=== PATIENT | male | born 1975 | race Caucasian/White ===

== ENCOUNTER 2017-04-08 14:59 | Emergency (ER) | payer OTHER ==
--- NOTE | 2017-04-08 18:15 | ED ORDER SUMMARY ---
..... Patient: MARYANNE ARORA W OrderSheet [facility] VisitID: [id number] [address] [place] [address] 41y, M Registration Date/Time: 04/08/2017 ORDER SHEET Weight: 68.0 kg (stated) Allergies: Codeine GENERAL ORDERS: CBC w Diff Urgent (15:04/08/2017 HBivens A.R.N.P.) (Ack 15:29 TBergley) (15:33 KKnebel R.N.) CMP Urgent (15:04/08/2017 HBivens A.R.N.P.) (Ack 15:29 TBergley) (15:33 KKnebel R.N.) UA-Culture if indicated Urgent (15:04/08/2017 HBivens A.R.N.P.) (Ack 15:29 TBergley) Amylase Urgent (15:04/08/2017 HBivens A.R.N.P.) (Ack 15:29 TBergley) (15:33 KKnebel R.N.) Lipase Urgent (15:04/08/2017 HBivens A.R.N.P.) (Ack 15:29 TBergley) (15:40 KKnebel R.N.) MEDICATION ORDERS: IV FLUIDS: IV NS : initial bolus 1000 mL (1000 mL/hr), then none - (NOW) (15:04/08/2017 HBivens A.R.N.P.) (15:34 KKnebel R.N.) Zofran IV 4 mg (NOW) (15:04/08/2017 HBivens A.R.N.P.) (15:41 KKnebel R.N.) Toradol IV 30 mg (NOW) (15:04/08/2017 HBivens A.R.N.P.) (15:41 KKnebel R.N.) IV Saline Lock (15:04/08/2017 HBivens A.R.N.P.) (15:33 KKnebel R.N.) Reglan IV 10 mg (NOW) (17:04/08/2017 Madhavi Wren.R.N.PSon) (17:26 Nicholas Jones.NSon) ORDER SHEET NOTES: [Electronically signed by Rivas Coppola R.N. (18:16 04/08/2017)] [Electronically signed by Blanca RodriguezNSonPSon (18:30 04/08/2017)] [Electronically locked/signed by Rivas Coppola R.N. (18:16 04/08/2017)]
--- NOTE | 2017-04-08 18:15 | ED NURSING NOTES ---
Clinical Report - Nurses [facility] [address] [place] [address] 04/08/2017 15:00 Patient: MARYANNE ARORA TRIAGE Triage time 15:Apr 08 2017. Acuity: LEVEL 3. Chief Complaint: ABDOMINAL PAIN. Alert. No acute distress. RAOUL COMA SCORE: Raoul Coma Scale: 15- eyes open spontaneously (4); best verbal response- oriented x 4 (5); best motor response- obeys commands (6). --15:12 Bianca Naik R.N. 15:08 04/08/17. BP: 141/86. HR: 99. RR: 16. O2 saturation: 99%. Temp: 97.9 F. Pain level now: 03/09. --15:12 Bianca Naik R.N. Weight: 68 kg stated. Height/Length: 67 inches Per Patient. BMI: 23.5. --15:11 Bianca Naik R.N. Medications None. --15:09 Bianca Naik R.N. Allergies Codeine. --15:09 Bianca Naik R.N. History Arrived by private vehicle. Historian: patient. Accompanied by friend. ( friend will return to pick pt up). Onset. (about 4 days ago). He has had nausea, vomiting and diarrhea. 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 PAST MEDICAL HX: Immunizations: status is unknown. SOCIAL HX: Current every day light tobacco smoker (cigarette)- less than 1/2 a pack per day. No alcohol use or drug use. No recent travel. No infectious disease exposure. No known contact with a sick individual. SELF HARM ASSESSMENT: A self harm assessment was performed. The patient answered "no" to the question "Do you have thoughts of harming or killing yourself?". FALL RISK ASSESSMENT: Fall risk assessment completed. No fall risk identified. NUTRITIONAL RISK ASSESSMENT: The nutritional risk assessment revealed no deficiencies. FUNCTIONAL ASSESSMENT: Functional assessment: no impairments noted. LEARNING NEEDS ASSESSMENT: The learning needs assessment revealed no barriers. ABUSE ASSESSMENT: Abuse assessment: The patient was asked "Do you feel safe in your home?". SKIN INTEGRITY ASSESSMENT: Skin integrity risk assessment completed. No skin integrity risk identified. --15:12 Bianca Naik R.N. PROBLEMS: HIV Illness. --15:10 Bianca Naik R.N. Interventions ID band on patient. --15:12 Bianca Naik R.N. PHYSICAL ASSESSMENT Ambulatory to room. GENERAL / NEURO / PSYCH: Alert. Oriented X 4. RESPIRATORY: Respirations not labored. CVS: Capillary refill less than 2 seconds. GI / : The patient has loose stools. This has occurred several times. It has been watery. Abdomen soft. Abdominal tenderness in the upper abdomen and epigastric area. Bowel sounds within normal limits. Stool heme negative. (POC test reference range: negative). SKIN: Skin is warm and dry. --15:15 Bianca Naik R.N. NURSING PROGRESS NOTES Patient gowned. Head of bed elevated. Patient identifiers checked. Call light placed in reach. Side rails up x 1. Bed placed in lowest position. Brakes of bed on. --15:15 Bianca Naik R.N. 15:30 04/08/2017 Site #1 started via IV in the left antecubital space with an 20g angiocath, with aseptic technique and good blood return; one attempt. Blood drawn: rainbow set. Labeled in the presence of the patient and sent to the lab. Saline lock flushed with 10 mL saline. --15:33 Bianca Naik R.N. 15:31 04/08/2017 Started bag #1 1000 mL IV Fluids IV NS (Saline); bolus of 1000 mL over 1 hour(s) via site #1. Allergies verified and confirmed 5 rights. IV patency established. IV site checked: no pain, redness, or swelling. IV flushed thoroughly pre- and post-medication administration. --15:34 Bianca Naik R.N. 15:39 04/08/2017 Zofran (Ondansetron HCl) IVP 4 mg given over 2 minute(s) via site #1. Allergies verified and confirmed 5 rights. IV patency established. IV site checked: no pain, redness, or swelling. IV flushed thoroughly pre- and post-medication administration. IVP given by RN. --15:41 Bianca Naik R.N. 15:41 04/08/2017 Toradol IVP 30 mg given over 2 minute(s) via site #1. Allergies verified and confirmed 5 rights. IV patency established. IV site checked: no pain, redness, or swelling. IV flushed thoroughly pre- and post-medication administration. IVP given by RN. --15:41 Bianca Naik R.N. Reassessment after medication administered. He is sleeping. Overall patient status is the same- he states feels the same. --16:49 Bianca Naik R.N. 16:48 04/08/17. BP: 150/102. HR: 76. RR: 16. O2 saturation: 100%. Pain level now: 03/09. --16:49 Bianca Naik R.N. 16:27 04/08/2017 IV Fluids IV NS Discontinued: bag #1 infused. Total amount infused: 1000 mL. --17:27 Bianca Naik R.N. 17:26 04/08/2017 Reglan (Metoclopramide HCl) IVP 10 mg given over 2 minute(s) via site #1. Allergies verified and confirmed 5 rights. IV patency established. IV site checked: no pain, redness, or swelling. IV flushed thoroughly pre- and post-medication administration. IVP given by RN. --17:26 Bianca Naik R.N. Reassessment after medication administered. Overall patient status is the same- he states feels the same. --17:27 Bianca Naik R.N. 17:26 04/08/17. BP: 141/99. HR: 60. RR: 16. O2 saturation: 100%. Pain level now: 03/09. --17:27 Bianca Naik R.N. DISPOSITION / DISCHARGE 18:14 04/08/2017 Site #1 removed upon discharge. Catheter intact. --18:14 Rivas Coppola R.N. 18:15 04/08/17. Condition at departure: improved. The goals identified in the patient's plan of care were met. No learning barriers present. Discharge instructions provided and reviewed with the patient. Reviewed warnings. Reviewed medication(s). Treatments reviewed. Patient verbalized understanding. Written instructions provided in Beninese. The patient was discharged by the nurse practitioner. He was discharged home and accompanied by diagnostic assistant. He left the Emergency Department ambulatory and via private vehicle. Stapling Machine Operator driving. FALL RISK ASSESSMENT: Fall risk assessment completed. No fall risk identified. --18:15 Rivas Coppola R.N. 18:14 04/08/17. BP: 138/99. HR: 93. RR: 16. O2 saturation: 99% on room air. Temp: 98.3 F (oral). --18:15 Rivas Coppola R.N. 18:15 04/08/17. Departure time: 18:15. --18:15 Rivas Coppola R.N. Locked/Released at 04/08/2017 18:16 by Rivas Coppola R.N.
--- NOTE | 2017-04-08 18:15 | ED NURSING NOTES ---
Clinical Report - Nurses [facility] [address] [place] [address] 04/08/2017 15:00 Patient: MARYANNE ARORA TRIAGE Triage time 15:Apr 08 2017. Acuity: LEVEL 3. Chief Complaint: ABDOMINAL PAIN. Alert. No acute distress. RAOUL COMA SCORE: Raoul Coma Scale: 15- eyes open spontaneously (4); best verbal response- oriented x 4 (5); best motor response- obeys commands (6). --15:12 Bianca Naik R.N. 15:08 04/08/17. BP: 141/86. HR: 99. RR: 16. O2 saturation: 99%. Temp: 97.9 F. Pain level now: 03/09. --15:12 Bianca Naik R.N. Weight: 68 kg stated. Height/Length: 67 inches Per Patient. BMI: 23.5. --15:11 Bianca Naik R.N. Medications None. --15:09 Bianca Naik R.N. Allergies Codeine. --15:09 Bianca Naik R.N. History Arrived by private vehicle. Historian: patient. Accompanied by friend. ( friend will return to pick pt up). Onset. (about 4 days ago). He has had nausea, vomiting and diarrhea. 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 PAST MEDICAL HX: Immunizations: status is unknown. SOCIAL HX: Current every day light tobacco smoker (cigarette)- less than 1/2 a pack per day. No alcohol use or drug use. No recent travel. No infectious disease exposure. No known contact with a sick individual. SELF HARM ASSESSMENT: A self harm assessment was performed. The patient answered "no" to the question "Do you have thoughts of harming or killing yourself?". FALL RISK ASSESSMENT: Fall risk assessment completed. No fall risk identified. NUTRITIONAL RISK ASSESSMENT: The nutritional risk assessment revealed no deficiencies. FUNCTIONAL ASSESSMENT: Functional assessment: no impairments noted. LEARNING NEEDS ASSESSMENT: The learning needs assessment revealed no barriers. ABUSE ASSESSMENT: Abuse assessment: The patient was asked "Do you feel safe in your home?". SKIN INTEGRITY ASSESSMENT: Skin integrity risk assessment completed. No skin integrity risk identified. --15:12 Bianca Naik R.N. PROBLEMS: HIV Illness. --15:10 Bianca Naik R.N. Interventions ID band on patient. --15:12 Bianca Naik R.N. PHYSICAL ASSESSMENT Ambulatory to room. GENERAL / NEURO / PSYCH: Alert. Oriented X 4. RESPIRATORY: Respirations not labored. CVS: Capillary refill less than 2 seconds. GI / : The patient has loose stools. This has occurred several times. It has been watery. Abdomen soft. Abdominal tenderness in the upper abdomen and epigastric area. Bowel sounds within normal limits. Stool heme negative. (POC test reference range: negative). SKIN: Skin is warm and dry. --15:15 Bianca Naik R.N. NURSING PROGRESS NOTES Patient gowned. Head of bed elevated. Patient identifiers checked. Call light placed in reach. Side rails up x 1. Bed placed in lowest position. Brakes of bed on. --15:15 Bianca Naik R.N. 15:30 04/08/2017 Site #1 started via IV in the left antecubital space with an 20g angiocath, with aseptic technique and good blood return; one attempt. Blood drawn: rainbow set. Labeled in the presence of the patient and sent to the lab. Saline lock flushed with 10 mL saline. --15:33 Bianca Naik R.N. 15:31 04/08/2017 Started bag #1 1000 mL IV Fluids IV NS (Saline); bolus of 1000 mL over 1 hour(s) via site #1. Allergies verified and confirmed 5 rights. IV patency established. IV site checked: no pain, redness, or swelling. IV flushed thoroughly pre- and post-medication administration. --15:34 Bianca Naik R.N. 15:39 04/08/2017 Zofran (Ondansetron HCl) IVP 4 mg given over 2 minute(s) via site #1. Allergies verified and confirmed 5 rights. IV patency established. IV site checked: no pain, redness, or swelling. IV flushed thoroughly pre- and post-medication administration. IVP given by RN. --15:41 Bianca Naik R.N. 15:41 04/08/2017 Toradol IVP 30 mg given over 2 minute(s) via site #1. Allergies verified and confirmed 5 rights. IV patency established. IV site checked: no pain, redness, or swelling. IV flushed thoroughly pre- and post-medication administration. IVP given by RN. --15:41 Bianca Naik R.N. Reassessment after medication administered. He is sleeping. Overall patient status is the same- he states feels the same. --16:49 Bianca Naik R.N. 16:48 04/08/17. BP: 150/102. HR: 76. RR: 16. O2 saturation: 100%. Pain level now: 03/09. --16:49 Bianca Naik R.N. 16:27 04/08/2017 IV Fluids IV NS Discontinued: bag #1 infused. Total amount infused: 1000 mL. --17:27 Bianca Naik R.N. 17:26 04/08/2017 Reglan (Metoclopramide HCl) IVP 10 mg given over 2 minute(s) via site #1. Allergies verified and confirmed 5 rights. IV patency established. IV site checked: no pain, redness, or swelling. IV flushed thoroughly pre- and post-medication administration. IVP given by RN. --17:26 Bianca Naik R.N. Reassessment after medication administered. Overall patient status is the same- he states feels the same. --17:27 Bianca Naik R.N. 17:26 04/08/17. BP: 141/99. HR: 60. RR: 16. O2 saturation: 100%. Pain level now: 03/09. --17:27 Bianca Naik R.N. DISPOSITION / DISCHARGE 18:14 04/08/2017 Site #1 removed upon discharge. Catheter intact. --18:14 Rivas Coppola R.N. 18:15 04/08/17. Condition at departure: improved. The goals identified in the patient's plan of care were met. No learning barriers present. Discharge instructions provided and reviewed with the patient. Reviewed warnings. Reviewed medication(s). Treatments reviewed. Patient verbalized understanding. Written instructions provided in Luxembourger. The patient was discharged by the nurse practitioner. He was discharged home and accompanied by pneumatic tube operator. He left the Emergency Department ambulatory and via private vehicle. Bow Maker Gift Wrapping driving. FALL RISK ASSESSMENT: Fall risk assessment completed. No fall risk identified. --18:15 Rivas Coppola R.N. 18:14 04/08/17. BP: 138/99. HR: 93. RR: 16. O2 saturation: 99% on room air. Temp: 98.3 F (oral). --18:15 Rivas Coppola R.N. 18:15 04/08/17. Departure time: 18:15. --18:15 Rivas Coppola R.N. Locked/Released at 04/08/2017 18:16 by Rivas Coppola R.N.
--- NOTE | 2017-04-08 18:15 | ED ORDER SUMMARY ---
..... Patient: MARYANNE ARORA W OrderSheet [facility] VisitID: [id number] [address] [place] [address] 41y, M Registration Date/Time: 04/08/2017 ORDER SHEET Weight: 68.0 kg (stated) Allergies: Codeine GENERAL ORDERS: CBC w Diff Urgent (15:04/08/2017 HBivens A.R.N.P.) (Ack 15:29 TBergley) (15:33 KKnebel R.N.) CMP Urgent (15:04/08/2017 HBivens A.R.N.P.) (Ack 15:29 TBergley) (15:33 KKnebel R.N.) UA-Culture if indicated Urgent (15:04/08/2017 HBivens A.R.N.P.) (Ack 15:29 TBergley) Amylase Urgent (15:04/08/2017 HBivens A.R.N.P.) (Ack 15:29 TBergley) (15:33 KKnebel R.N.) Lipase Urgent (15:04/08/2017 HBivens A.R.N.P.) (Ack 15:29 TBergley) (15:40 KKnebel R.N.) MEDICATION ORDERS: IV FLUIDS: IV NS : initial bolus 1000 mL (1000 mL/hr), then none - (NOW) (15:04/08/2017 HBivens A.R.N.P.) (15:34 KKnebel R.N.) Zofran IV 4 mg (NOW) (15:04/08/2017 HBivens A.R.N.P.) (15:41 KKnebel R.N.) Toradol IV 30 mg (NOW) (15:04/08/2017 HBivens A.R.N.P.) (15:41 KKnebel R.N.) IV Saline Lock (15:04/08/2017 HBivens A.R.N.P.) (15:33 KKnebel R.N.) Reglan IV 10 mg (NOW) (17:04/08/2017 Madhavi Wren.R.N.PSon) (17:26 Nicholas Jones.NSon) ORDER SHEET NOTES: [Electronically signed by Rivas Coppola R.N. (18:16 04/08/2017)] [Electronically signed by Blanca RodriguezNSonPSon (18:30 04/08/2017)] [Electronically locked/signed by Rivsa Coppola R.N. (18:16 04/08/2017)]
--- NOTE | 2017-04-08 18:15 | ED CLINICAL REPORT ---
Clinical Report - Physicians/Mid Levels [facility] [address] [place] [address] 04/08/2017 15:00 Patient: MARYANNE ARORA Time Seen: 15:18; initial patient contact, initial documentation, patient care assumed. Arrived- By private vehicle. Historian- patient. HISTORY OF PRESENT ILLNESS Chief Complaint: VOMITING and DIARRHEA. This started about 4 days ago and is still present. It was abrupt in onset and has been constant. No recent travel. He has had nausea. He has had severe vomiting. The vomiting has occurred numerous times and has been bilious. No feculent emesis, blood-tinged emesis, coffee-grounds emesis, frankly bloody emesis or unusually dark emesis. He has had mild diarrhea (none today after he took immodium). No bloody, watery, mucous containing or blood-tinged diarrhea. No black stools, bloody stools, constipation, flank pain or history of possible bad food exposure. No known contact with a sick individual or change in routine. He has had mild, constant abdominal pain. The pain is described as located in the epigastrium, RLQ, suprapubic region, LLQ and lower abdomen. No nausea, vomiting, diarrhea or radiation of abdominal pain to the back. Has not recently been camping or on antibiotics. The illness is described as moderate. (no pcp, and would also like to speak to counselor sometime over some issues, says he doesn't need anyone today, but if we had someone he could f/u with that would be helpful). Similar symptoms previously: None. Recent medical care: Not recently seen/assessed. REVIEW OF SYSTEMS No fever, difficulty with urination, dark urine, chest pain or difficulty breathing. All systems otherwise negative, except as recorded above. PAST HISTORY See nurses notes. PROBLEMS: HIV Illness. --15:10 Bianca Naik R.N. SOCIAL HISTORY Light tobacco smoker. No alcohol use or drug use. No recent travel. Is a local resident. FAMILY HISTORY Negative. ADDITIONAL NOTES The nursing notes have been reviewed with agreement regarding the chief complaint, HPI, ROS, PMH and patient medications and allergies. PHYSICAL EXAM Vital Signs: 04/08/2017 15:08 BP: 141/86. HR: 99. RR: 16. O2 saturation: 99%. Temp: 97.9 F. Pain level now: 03/09. Have been reviewed as normal and appear to be correct. Appearance: Alert. Oriented X3. No acute distress. Eyes: Pupils equal, round and reactive to light. Eyes normal inspection. Neck: Normal inspection. Neck supple. CVS: Normal heart rate and rhythm. Heart sounds normal. Pulses normal. Respiratory: No respiratory distress. Breath sounds normal. Abdomen: Soft and nontender. Bowel sounds normal. No organomegaly. No mass. Back: Normal inspection. Skin: Skin warm and dry. Normal skin color. No rash. Normal skin turgor. Extremities: Extremities exhibit normal ROM. No lower extremity edema. Neuro: Oriented X 3. No motor deficit. No sensory deficit. LABS, X-RAYS, AND EKG Laboratory Tests: CBC w Diff: (JEREMY: 04/08/2017 15:30) ( [facility] [place] 04/08/2017 15:41) Final results Test Result Flag Units (Reference) WHITE BLOOD COUNT 8.0 K/uL (4.5-11.5) RED BLOOD COUNT 5.04 M/uL (4.50-5.90) HEMOGLOBIN 15.2 gm/dL (13.5-17.5) HEMATOCRIT 44.6 % (41.0-53.0) MEAN CELL VOLUME 89 fL (80-100) MEAN CORPUSCULAR HGB 30 pg (26-34) MEAN CORPUSCULAR HGB CONC 34 g/dL (31-37) RED CELL DISTRIBUTION WIDTH 13.0 % (11.6-14.8) PLATELET COUNT 151 K/uL (150-400) NEUTROPHIL % 81.4 H % (50-75) LYMPH % 12.4 L % (25-40) MONO % 6.2 % (3-14) EOSINOPHIL % 0 % (0-4) BASOPHIL % 0 % (0-2) CMP: (JEREMY: 04/08/2017 15:30) ( [facility] [place] 04/08/[place] 16:08) Final results Test Result Flag Units (Reference) GLUCOSE 172 H mg/dL (70-110) BUN 17 mg/dL (7-18) CREATININE 1.0 mg/dL (0.6-1.3) Estimated GFR >60 mL/min Estimated GFR- >60 mL/min Note: Persistent reduction over 3 months in eGFR<60 mL/min/1.73 m2 defines CKD. Patients with eGFR values>=60 mL/min/1.73 m2 may also have CKD if evidence ofpersistent proteinuria. Additional information may be foundat www.kidney.org. SODIUM 135 L mmol/L (136-145) POTASSIUM 3.5 mmol/L (3.5-5.1) CHLORIDE 97 L mmol/L (98-107) CARBON DIOXIDE 28 mmol/L (21-32) CALCIUM 8.6 mg/dL (8.5-10.1) TOTAL PROTEIN 7.3 g/dL (6.4-8.2) ALBUMIN 3.2 L g/dL (3.3-5.0) BILIRUBIN, TOTAL 0.4 mg/dL (0.0-1.0) ALKALINE PHOSPHATASE 75 U/L (46-116) AST (SGOT) 16 U/L (15-37) ALT (SGPT) 25 U/L (12-78) LIPASE 200 U/L (73-393) AMYLASE 36 U/L (25-115) . PROGRESS AND PROCEDURES Patient counseled in person regarding the patient's stable condition, test results and diagnosis. 1715. Differential Diagnosis: I considered gastritis, peptic ulcer disease, ischemia, gastroesophageal reflux disease, gastroparesis, Crohn's disease, ulcerative colitis, small bowel obstruction, gastric outlet obstruction, colonic obstruction, colon cancer, gastroenteritis, cholecystitis, pancreatitis, viral syndrome, enterocolitis, urinary tract infection, hepatitis, sepsis and drugs as a possible cause of vomiting in this patient. This is a partial list of diagnoses considered. Above considerations are based on history, physical exam, reassessment and laboratory data. Differential diagnosis was discussed with patient. Disposition: Discharged home in good and improved condition (17:28). Condition: good and stable. CLINICAL IMPRESSION Acute noninfectious gastroenteritis. INSTRUCTIONS Take clear liquids only (frequent sips) for the next 24 hours until better. May continue medications with sips only. Advance diet as tolerated. Avoid. Warnings: GENERAL WARNINGS: Return or contact your physician immediately if your condition worsens or changes unexpectedly, if not improving as expected, or if other problems arise. SPECIFICALLY, return if you develop pain in the abdomen or pelvis, fever, the inability to keep fluids down, blood in vomitus, blood in diarrhea, fainting or lightheadedness. Prescription Medications: Zofran 4 mg: Take 1 orally every six hours as needed for nausea/vomiting. Dispense ten (10). No refills. Substitution is permissible. Bentyl 20 mg tablets: take 1 orally every 6 hours as needed. Dispense thirty (30). No refills. Substitution is permissible. Follow-up: Follow up with your doctor in about two days even if well. Call for an appointment. Summary of care provided to patient. Understanding of the discharge instructions verbalized by patient. (Electronically signed by Blanca Rodriguez A.R.N.P. 04/08/2017 18:30)
--- NOTE | 2017-04-08 18:30 | ED MAR SUMMARY ---
..... Medication Administration Record [facility] [address] [place] [address] Patient: MARYANNE ARORA Visit ID: [id number] 41y, M Weight: 68.0 kg Height/Length: 67 in BMI: 23.5 ALLERGIES: Codeine Start 15:31 04/08/2017 Bianca Naik R.N., Stop 16:27 04/08/2017 Bianca Naik R.N. Medication Administered: IV NS (SALINE), Dose: IV Fluids, Bolus: 1000 mL over 1 hour(s), Dispensed: 1000 mL bag, Site: #1 left AC. Medication Ordered: IV NS : initial bolus 1000 mL (1000 mL/hr), then none - (NOW). Given 15:39 04/08/2017 Bianca Naik R.N. Medication Administered: ZOFRAN [IVP] (ONDANSETRON HCL), Dose: 4 mg IVP over 2 minute(s), Site: #1 left AC. Medication Ordered: Zofran IV 4 mg (NOW). Given 15:41 04/08/2017 Bianca Naik R.N. Medication Administered: TORADOL [IVP], Dose: 30 mg IVP over 2 minute(s), Site: #1 left AC. Medication Ordered: Toradol IV 30 mg (NOW). Given 17:26 04/08/2017 Bianca Naik R.N. Medication Administered: REGLAN [IVP] (METOCLOPRAMIDE HCL), Dose: 10 mg IVP over 2 minute(s), Site: #1 left AC. Medication Ordered: Reglan IV 10 mg (NOW).
--- NOTE | 2017-04-08 18:30 | ED MED RECONCILIATION SUMMARY ---
Patient: MARYANNE ARORA Medication Reconciliation Report [facility] VisitID: [id number] [address] [place] [address] 41y, M Registration Date/Time: 04/08/2017 Weight: 68.0 kg Height/Length: 67 in. BMI: 23.5 ALLERGIES: Codeine The patient's Home Medications are listed below: NONE. The source(s) of the original Home Medication information: Not obtained. The following Medications were given to the patient in the Emergency Department: IV NS IV Fluids bolus 1000 mL over 1 hour(s), administered: 04/08/2017 3:31:00 PM Zofran [IVP] IVP 4 mg, administered: 04/08/2017 3:39:00 PM Toradol [IVP] IVP 30 mg, administered: 04/08/2017 3:41:00 PM Reglan [IVP] IVP 10 mg, administered: 04/08/2017 5:26:00 PM The following Medications were prescribed to the patient: Zofran 4 mg: Take 1 orally every six hours as needed for nausea/vomiting. Dispense ten (10). No refills. Substitution is permissible. -- Blanca Rodriguez, Holger.R.N.P. Bentyl 20 mg tablets: take 1 orally every 6 hours as needed. Dispense thirty (30). No refills. Substitution is permissible. -- Blanca Rodriguez A.R.N.P.
--- NOTE | 2017-04-08 18:30 | ED MED RECONCILIATION SUMMARY ---
Patient: MARYANNE ARORA Medication Reconciliation Report [facility] VisitID: [id number] [address] [place] [address] 41y, M Registration Date/Time: 04/08/2017 Weight: 68.0 kg Height/Length: 67 in. BMI: 23.5 ALLERGIES: Codeine The patient's Home Medications are listed below: NONE. The source(s) of the original Home Medication information: Not obtained. The following Medications were given to the patient in the Emergency Department: IV NS IV Fluids bolus 1000 mL over 1 hour(s), administered: 04/08/2017 3:31:00 PM Zofran [IVP] IVP 4 mg, administered: 04/08/2017 3:39:00 PM Toradol [IVP] IVP 30 mg, administered: 04/08/2017 3:41:00 PM Reglan [IVP] IVP 10 mg, administered: 04/08/2017 5:26:00 PM The following Medications were prescribed to the patient: Zofran 4 mg: Take 1 orally every six hours as needed for nausea/vomiting. Dispense ten (10). No refills. Substitution is permissible. -- Blanca Rodriguez, Holger.R.N.P. Bentyl 20 mg tablets: take 1 orally every 6 hours as needed. Dispense thirty (30). No refills. Substitution is permissible. -- Blanca Rodriguez A.R.N.P.
--- NOTE | 2017-04-08 18:30 | ED MAR SUMMARY ---
..... Medication Administration Record [facility] [address] [place] [address] Patient: MARYANNE ARORA Visit ID: [id number] 41y, M Weight: 68.0 kg Height/Length: 67 in BMI: 23.5 ALLERGIES: Codeine Start 15:31 04/08/2017 Bianca Naik R.N., Stop 16:27 04/08/2017 Bianca Naik R.N. Medication Administered: IV NS (SALINE), Dose: IV Fluids, Bolus: 1000 mL over 1 hour(s), Dispensed: 1000 mL bag, Site: #1 left AC. Medication Ordered: IV NS : initial bolus 1000 mL (1000 mL/hr), then none - (NOW). Given 15:39 04/08/2017 Bianca Naik R.N. Medication Administered: ZOFRAN [IVP] (ONDANSETRON HCL), Dose: 4 mg IVP over 2 minute(s), Site: #1 left AC. Medication Ordered: Zofran IV 4 mg (NOW). Given 15:41 04/08/2017 Bianca Naik R.N. Medication Administered: TORADOL [IVP], Dose: 30 mg IVP over 2 minute(s), Site: #1 left AC. Medication Ordered: Toradol IV 30 mg (NOW). Given 17:26 04/08/2017 Bianca Naik R.N. Medication Administered: REGLAN [IVP] (METOCLOPRAMIDE HCL), Dose: 10 mg IVP over 2 minute(s), Site: #1 left AC. Medication Ordered: Reglan IV 10 mg (NOW).
--- NOTE | 2017-04-08 18:30 | ED DISCHARGE INSTRUCTIONS ---
Patient: MARYANNE ARORA General Instructions [facility] VisitID: [id number] [place] [address] 41y, M Registration Date/Time: 04/08/2017 Acute noninfectious gastroenteritis. INSTRUCTIONS Take clear liquids only (frequent sips) for the next 24 hours until better. May continue medications with sips only. Advance diet as tolerated. Avoid. Warnings: GENERAL WARNINGS: Return or contact your physician immediately if your condition worsens or changes unexpectedly, if not improving as expected, or if other problems arise. SPECIFICALLY, return if you develop pain in the abdomen or pelvis, fever, the inability to keep fluids down, blood in vomitus, blood in diarrhea, fainting or lightheadedness. Prescription Medications: Zofran 4 mg: Take 1 orally every six hours as needed for nausea/vomiting. Dispense ten (10). No refills. Substitution is permissible. Bentyl 20 mg tablets: take 1 orally every 6 hours as needed. Dispense thirty (30). No refills. Substitution is permissible. Follow-up: Follow up with your doctor in about two days even if well. Call for an appointment. Summary of care provided to patient. Understanding of the discharge instructions verbalized by patient. ADDITIONAL INFORMATION Gastroenteritis [Non-Infectious, 6 Yr-Adult] Your symptoms today are coming from the intestinal tract. This may occur as a result of food sensitivity, inflammation of the GI tract, medicines, stress or other causes not related to infection. This may last from 1-3 days. Antibiotics are not effective, but simple home treatment will be helpful. Home Care: If symptoms are severe, rest at home for the next 24 hours. You may use acetaminophen (Tylenol) or ibuprofen (Motrin, Advil) to control fever, unless another medicine was prescribed. [NOTE: If you have chronic liver or kidney disease or ever had a stomach ulcer or GI bleeding, talk with your doctor before using these medicines.] (Aspirin should never be used in anyone under 18 years of age who is ill with a fever. It may cause severe liver damage.) Avoid tobacco and alcohol use, which may make your symptoms worse. If medicines for diarrhea or vomiting were prescribed, take only as directed. Once vomiting stops, then follow these guidelines: During The First 12-24 Hours follow the diet below: gingerale, mineral water (plain or flavored), decaffeinated tea and coffee. During The Next 24 Hours you may add the following to the above: DURING THE NEXT 24 HOURS Gradually resume a normal diet, as you feel better and your symptoms lessen. Follow Up with your doctor as advised if you are not improving over the next 2-3 days. If a stool (diarrhea) sample was taken, you may call in 2 days (or as directed) for the results. Get Prompt Medical Attention if any of the following occur: Increasing abdominal pain or constant lower right abdominal pain Continued vomiting (unable to keep liquids down) Frequent diarrhea (more than 5 times a day) Blood in vomit or stool (black or red color) Reduced oral intake Dark urine, reduced urine output Weakness, dizziness, fainting Drowsiness, confusion, stiff neck or seizure Fever of 100.4F (38C) or higher, or as directed by your healthcare provider New rash Clear Liquid Diet Clear liquids are any liquid that you can see through as well as those that are very easy to digest. This is used while the body is recovering from irritation or infection of the stomach or intestinal tract. It may also be used before special procedures or surgery. This diet is to be used no more than three days. You may include the following items. Adults Adults should drink a total of 23 quarts of liquid per day. It may be easier to drink small frequent servings rather than a few large ones. Liquids can include: Fruit juices.Strained orange juice or lemonade (no pulp), apple, grape and cranberry juice, clear fruit drinks, sports drinks Beverages.Sport drinks, sodas, mineral water (plain or flavored), tea, black coffee, liquid gelatin (add twice the recommended amount of water) Soups.Clear broth, consomm, bouillon Desserts.Plain gelatin, popsicles, fruit juice bars Children Over 2 years old The following liquids are acceptable for children over age 2: Fruit juices.Strained orange juice or lemonade (no pulp), apple, grape and cranberry juice, clear fruit drinks Beverages. Sports drinks, sodas, mineral water (plain or flavored), tea, liquid gelatin (add twice the recommended amount of water) Soups. Clear broth, consomm, bouillon Desserts. Plain gelatin, popsicles, fruit juice bars Children under 2 years old Oral rehydration fluids such are available at drug stores and most grocery stores without a prescription. Convent Diet A bland diet is used for patients with an upset stomach. It consists of foods that are mild and easy to digest. It is better to eat small frequent meals rather than three large meals a day. BEVERAGES OK: Fruit juices, non-caffeinated teas and coffee, non-carbonated navas AVOID: Carbonated beverage, caffeinated tea and coffee, all alcoholic beverages BREAD OK: Refined white, wheat or rye bread, ankita or soda crackers, Beth toast, plain rolls, bagels AVOID: Whole-grain bread CEREAL OK: Refined cereals: cooked or ready to eat AVOID: Whole grain cereals and granola, or those containing bran, seeds or nuts DESSERTS OK: Peanut butter and all others except those to "avoid" AVOID: Chocolate, cocoa, coconut, popcorn, nuts, seeds, jam, marmalade FRUITS OK: Canned, cooked, frozen or fresh fruits without seeds or tough skin AVOID: Olives, skin and seeds of fruit MEATS OK: All fresh or preserved meat, fish and fowl AVOID: Any that are prepared with those spices to "avoid" CHEESE & EGGS OK: Eggs, cottage cheese, cream cheese, other cheeses AVOID: All cheeses made with those spices to "avoid" POTATOES & PASTA OK: Potato, rice, macaroni, noodles, spaghetti AVOID: None SOUPS OK: All soups without heavy seasoning AVOID: Soups made with those spices to "avoid" VEGETABLES OK: Canned, cooked, fresh or frozen mildly flavored vegetables without seeds, skins or coarse fiber AVOID: Vegetables prepared with those spices to "avoid"; skin and seeds of vegetables and those with coarse fiber SPICES OK: Salt, lemon and [place] juice, vinegar, all extracts, janet, cinnamon, thyme, mace, allspice, paprika AVOID: Emery powder, cloves, pepper, seed spices, garlic, gravy pickles, highly seasoned salad dressings Clear Liquid Diet Clear liquids are any liquid that you can see through as well as those that are very easy to digest. This is used while the body is recovering from irritation or infection of the stomach or intestinal tract. It may also be used before special procedures or surgery. This diet is to be used no more than three days. You may include the following items. Adults Adults should drink a total of 23 quarts of liquid per day. It may be easier to drink small frequent servings rather than a few large ones. Liquids can include: Fruit juices.Strained orange juice or lemonade (no pulp), apple, grape and cranberry juice, clear fruit drinks, sports drinks Beverages.Sport drinks, sodas, mineral water (plain or flavored), tea, black coffee, liquid gelatin (add twice the recommended amount of water) Soups.Clear broth, consomm, bouillon Desserts.Plain gelatin, popsicles, fruit juice bars Children Over 2 years old The following liquids are acceptable for children over age 2: Fruit juices.Strained orange juice or lemonade (no pulp), apple, grape and cranberry juice, clear fruit drinks Beverages. Sports drinks, sodas, mineral water (plain or flavored), tea, liquid gelatin (add twice the recommended amount of water) Soups. Clear broth, consomm, bouillon Desserts. Plain gelatin, popsicles, fruit juice bars Children under 2 years old Oral rehydration fluids such are available at drug stores and most grocery stores without a prescription. Ondansetron Oral disintegrating tablet What is this medicine? ONDANSETRON (on SHERITA se diego) is used to treat nausea and vomiting caused by chemotherapy. It is also used to prevent or treat nausea and vomiting after surgery. How should I use this medicine? These tablets are made to dissolve in the mouth. Do not try to push the tablet through the foil backing. With dry hands, peel away the foil backing and gently remove the tablet. Place the tablet in the mouth and allow it to dissolve, then swallow. While you may take these tablets with water, it is not necessary to do so. Talk to your batter scaler regarding the use of this medicine in children. Special care may be needed. What side effects may I notice from receiving this medicine? Side effects that you should report to your doctor or health intensive care unit registered nurse as soon as possible: allergic reactions like skin rash, itching or hives, swelling of the face, lips, or tongue breathing problems dizziness fast or irregular heartbeat feeling faint or lightheaded, falls fever and chills swelling of the hands and feet tightness in the chest Side effects that usually do not require medical attention (report to your doctor or health intensive care unit registered nurse if they continue or are bothersome): constipation or diarrhea headache What may interact with this medicine? Do not take this medicine with any of the following medications: -apomorphine -cisapride -dofetilide -dronedarone -pimozide -thioridazine -ziprasidone This medicine may also interact with the following medications: -carbamazepine -phenytoin -rifampicin -tramadol -other medicines that prolong the QT interval (cause an abnormal heart rhythm) What if I miss a dose? If you miss a dose, take it as soon as you can. If it is almost time for your next dose, take only that dose. Do not take double or extra doses. Where should I keep my medicine? Keep out of the reach of children. Store between 2 and 30 degrees C (36 and 86 degrees F). Throw away any unused medicine after the expiration date. What should I tell my health care provider before I take this medicine? They need to know if you have any of these conditions: heart disease history of irregular heartbeat liver disease low levels of magnesium or potassium in the blood an unusual or allergic reaction to ondansetron, granisetron, other medicines, foods, dyes, or preservatives or trying to get breast-feeding What should I watch for while using this medicine? Check with your doctor or health intensive care unit registered nurse as soon as you can if you have any sign of an allergic reaction. Dicyclomine Hydrochloride Oral tablet What is this medicine? DICYCLOMINE (dye VALERIE wood) is used to treat bowel problems including irritable bowel syndrome. How should I use this medicine? Take this medicine by mouth with a glass of water. Follow the directions on the prescription label. It is best to take this medicine on an empty stomach, 30 minutes to 1 hour before meals. Take your medicine at regular intervals. Do not take your medicine more often than directed. Talk to your batter scaler regarding the use of this medicine in children. Special care may be needed. While this drug may be prescribed for children as young as 6 months of age for selected conditions, precautions do apply. Patients over 65 years old may have a stronger reaction and need a smaller dose. What side effects may I notice from receiving this medicine? Side effects that you should report to your doctor or health intensive care unit registered nurse as soon as possible: agitation, nervousness, confusion difficulty swallowing dizziness, drowsiness fast or slow heartbeat hallucinations pain or difficulty passing urine Side effects that usually do not require medical attention (report to your doctor or health intensive care unit registered nurse if they continue or are bothersome): constipation headache nausea or vomiting sexual difficulty What may interact with this medicine? amantadine antacids benztropine digoxin disopyramide medicines for allergies, colds and breathing difficulties medicines for alzheimer's disease medicines for anxiety or sleeping problems medicines for depression or psychotic disturbances medicines for diarrhea medicines for pain metoclopramide tegaserod What if I miss a dose? If you miss a dose, take it as soon as you can. If it is almost time for your next dose, take only that dose. Do not take double or extra doses. Where should I keep my medicine? Keep out of the reach of children. Store at room temperature below 30 degrees C (86 degrees F). Protect from light. Throw away any unused medicine after the expiration date. What should I tell my health care provider before I take this medicine? They need to know if you have any of these conditions: difficulty passing urine esophagus problems or heartburn glaucoma heart disease, or previous heart attack myasthenia gravis prostate trouble stomach infection, or obstruction ulcerative colitis an unusual or allergic reaction to dicyclomine, other medicines, foods, dyes, or preservatives or trying to get breast-feeding What should I watch for while using this medicine? You may get drowsy, dizzy, or have blurred vision. Do not drive, use machinery, or do anything that needs mental alertness until you know how this medicine affects you. To reduce the risk of dizzy or fainting spells, do not sit or stand up quickly, especially if you are an older patient. Alcohol can make you more drowsy, avoid alcoholic drinks. Stay out of bright light and wear sunglasses if this medicine makes your eyes more sensitive to light. Avoid extreme heat (hot tubs, saunas). This medicine can cause you to sweat less than normal. Your body temperature could increase to dangerous levels, which may lead to heat stroke. Antacids can stop this medicine from working. If you get an upset stomach and want to take an antacid, make sure there is an interval of at least 1 to 2 hours before or after you take this medicine. Your mouth may get dry. Chewing sugarless gum or sucking hard candy, and drinking plenty of water may help. Contact your doctor if the problem does not go away or is severe. You have been given the following additional information: Gastroenteritis, Non-Infectious (Child) (Adult) Diet, Clear Liquid Diet, Convent (Adult) Diet, Clear Liquid Ondansetron Oral disintegrating tablet Dicyclomine Hydrochloride Oral tablet (Electronically signed by Blanca Rodriguez A.R.N.P. 04/08/2017 18:30)
== END 2017-04-08 18:15 | disposition home or self-care (01) ==
LOC: ED SRH 14:59
DX: K52.9 Noninfective gastroenteritis and colitis, unspecified (principal); F17.210 Nicotine dependence, cigarettes, uncomplicated
CPT/HCPCS: 90100; 92235; 92530; 95059